=== PATIENT | male | born 1975 | race African-American/Black ===

== ENCOUNTER 2016-06-12 14:52 | Day surgery (SDC) | payer OTHER ==
[2016-06-06 14:33] VITALS: BMI 33.8
[2016-06-11 11:44] VITALS: BMI 33.0
[~2016-06-12] VITALS: Ht 177.8 cm; Wt 106.0 kg
[2016-06-12] VITALS (28 sets, daily range): BP systolic 134–166; BP diastolic 62–93; PULSE 75–110; RESP 16–26; Ht 177.8 cm; Wt 106.0 kg
[~2016-06-12 14:52] MED LIST: PROPOFOL 200 MG INJ ONE
[2016-06-12] MEDS ORDERED: LACTATED RINGER'S 1,000 ML IV SCH (15:30)
[2016-06-12] MEDS ORDERED: MIDAZOLAM 1 MG/ML 2 ML INJ ONE ×2 (16:11)
[2016-06-12] MEDS ORDERED: SUCCINYLCHOLINE CHLORIDE 100 MG/5 ML SYG IV ONE (16:11)
[2016-06-12] MEDS ORDERED: PROPOFOL 20 ML ONE (16:11)
[2016-06-12] MEDS ORDERED: FENTAnyl 50 MCG/ML VIAL ONE (16:11)
[2016-06-12] MEDS ORDERED: LIDOCAINE 2% (SDV) 5 ML INJ ONE (16:11)
[2016-06-12] MEDS ORDERED: ROPIVACAINE 0.5 % 30 ML VIAL ONE (16:12)
[2016-06-12] MEDS ORDERED: METOCLOPRAMIDE 10 MG INJ IV PRN (16:30)
[2016-06-12] MEDS ORDERED: HYDROmorphONE (0.2 MG/ML) 10ML SYG IV PRN ×2 (16:30)
[2016-06-12] MEDS ORDERED: MEPERIDINE 25 MG INJ IV PRN ×2 (16:30→20:30)
[2016-06-12] MEDS ORDERED: OXYCODONE/ACETAMINOPHEN (5/325) TAB PO PRN ×2 (16:30)
[2016-06-12] MEDS ORDERED: ONDANSETRON 4 MG INJ IV PRN (16:30)
[2016-06-12] MEDS ORDERED: DIPHENHYDRAMINE 50 MG INJ IV PRN (16:30)
[2016-06-12] MEDS ORDERED: PROCHLORPERAZINE 10 MG INJ IV PRN (16:30)
[2016-06-12] MEDS ORDERED: FENTAnyl 50 MCG/ML VIAL IV PRN (16:30)
[2016-06-12] MEDS ORDERED: ALBUTEROL 0.083% (NEB) 2.5 MG/3 ML AMP ONE (17:54)
[2016-06-12] MEDS ORDERED: CEFAZOLIN 1 GM INJ ONE (17:55)
[2016-06-12] MEDS ORDERED: DEXAMETHASONE 4 MG/ML 1 ML INJ ONE (17:55)
[2016-06-12] MEDS ORDERED: ONDANSETRON 4 MG INJ ONE (17:55)
[2016-06-12] MEDS ORDERED: BUPIVACAINE 0.5%/EPI (SDV) 30 ML INJ ONE (18:11)
[2016-06-12] MEDS ORDERED: BUPIVACAINE 0.5%/EPI (SDV) 30 ML INJ INJ ONE (18:35)
[2016-06-12] MEDS ORDERED: NEOSTIGMINE 3 MG/3 ML SYRINGE ONE (18:48)
[2016-06-12] MEDS ORDERED: GLYCOPYRROLATE 1 MG INJ ONE (18:48)
--- NOTE | 2016-06-13 15:40 | EN ---
Date/Time of Note Date/Time of Note DATE: 06/13/16 TIME: 15:38 Event Note Anesthesiology Anesthesiology Event Note Patient called at home at number listed in EMR. Pt states he is doing well, tolerating po, saphenous nerve block starting to wear off, popliteal nerve block still effective. Pt states he has minimal pain, has not needed pain medications. Pt c/o some sore throat, using chloraseptic and cough drops, ice water. Will cont to follow-up until popliteal sciatic nerve block has worn off. JASSI IVY MD Jun 13, 2016 15:40
== END 2016-06-12 21:28 | disposition home or self-care (01) ==
LOC: SDS 14:52
PROVIDERS: ATTEND Podiatrist Foot & Ankle Surgery
DX: M94.8X7 Other specified disorders of cartilage, ankle and foot (principal); M25.871 Other specified joint disorders, right ankle and foot; E66.9 Obesity, unspecified; Z68.33 Body mass index [BMI] 33.0-33.9, adult
CPT/HCPCS: 29891; J0330; J0690; J1100; J2175; J2250; J2405; J2710; J2795; J3010